=== PATIENT | female | born 1980 | race African-American/Black ===

== ENCOUNTER 2017-01-24 10:50 | Inpatient (IN) | payer OTHER ==
[2017-01-24 13:22] VITALS: BMI 25.7
[2017-01-24] MEDS ORDERED: LOPERAMIDE HCL 2 MG CAPSULE PO PRN (14:52)
[2017-01-24] MEDS ORDERED: MAG HYDROX/AL HYDROX/SIMETH 30 ML UNIT-DOSE CUP PO PRN (14:52)
[2017-01-24] MEDS ORDERED: MAGNESIUM CITRATE 300 ML BOTTLE PO PRN (14:52)
[2017-01-24] MEDS ORDERED: NICOTINE POLACRILEX 2 MG GUM BC PRN (14:52)
[2017-01-24] MEDS ORDERED: guaiFENesin/D-METHORPHAN HB 10 ML UNIT-DOSE CUPS PO PRN (14:52)
[2017-01-24] MEDS ORDERED: MENTHOL/PHENOL 1 EACH UD MM PRN (14:52)
[2017-01-24] MEDS ORDERED: MAGNESIUM HYDROX 2400MG/30ML ORAL SUSPENSION 30 ML CUP PO PRN (14:52)
[2017-01-24] MEDS ORDERED: P-EPHED 60MG/TRIPROLIDI 2.5MG TABLET PO PRN (14:52)
--- NOTE | 2017-01-24 15:09 | HP ---
COWS - Scale Resting Pulse: 0= [place] 80 or Below Sweatin= Chills/Flushing Restless Observation: 1= Difficult to Sit Still Pupil Size: 1= Pupils >than Normal Bone or Joint Aches: 1= Mild Discomfort Runny Nose/ Eye Tearin= Nasal Congestion GI Upset > 30mins: 2= Nausea/Diarrhea Tremor Observation: 1= Tremor [place], Not Seen Yawning Observation: 0= None Anxiety or Irritability: 1=Feels Anxious/Irritable Goose Flesh Skin: 3=Piloerection COWS Score: 12 Admission ROS BHS - HPI Chief Complaint: I need help to stop taking opioids . Allergies/Adverse Reactions: Allergies Allergy/AdvReac Type Severity Reaction Status Date / Time piperacillin sodium Allergy Severe Swelling Verified 01/24/17 14:43 [From Zosyn] sulfamethoxazole Allergy Severe Swelling Verified 01/24/17 14:43 [From Bactrim] tazobactam sodium Allergy Severe Swelling Verified 01/24/17 14:43 [From Zosyn] trimethoprim [From Bactrim] Allergy Severe Swelling Verified 01/24/17 14:43 History of Present Illness: 36 y/o f pt with SCD has opioid dependency Exam Limitations: No Limitations - Ebola screening Have you traveled outside of the country in the last 21 days: No Have you had contact with anyone from an Ebola affected area: No Have you been sick,other than usual withdrawal symptoms: No Do you have a fever: No - Review of Systems Constitutional: Malaise, Changes in sleep EENT: reports: No Symptoms Reported Respiratory: reports: No Symptoms reported Cardiac: reports: No Symptoms Reported GI: reports: Nausea, Abdominal cramping : reports: No Symptoms Reported Musculoskeletal: reports: Joint Pain, Muscle Pain, Muscle Weakness Integumentary: reports: No Symptoms Reported Neuro: reports: Weakness Endocrine: reports: Other (adrenal insufficiency , hypothyroidism ,) Hematology: reports: Other (SCD) Other Systems: Reviewed and Negative Patient History - Patient Medical History Hx Anemia: Yes (sickle cell disease ) Hx Asthma: No Hx Chronic Obstructive Pulmonary Disease (COPD): No Hx Cancer: No Hx Cardiac Disorders: No Hx Congestive Heart Failure: No Hx Hypertension: No Hx Hypercholesterolemia: No Hx Pacemaker: No HX Cerebrovascular Accident: Yes (2012- left sided now much improved ) Hx Seizures: No Hx Dementia: No Hx Diabetes: No Hx Gastrointestinal Disorders: No Hx Liver Disease: No Hx Genitourinary Disorders: No Hx Sexually Transmitted Disorders: No Hx Renal Disease (ESRD): No Hx Thyroid Disease: Yes (hypothyroidism ) Hx Human Immunodeficiency Virus (HIV): No Hx Hepatitis C: No Hx Depression: Yes Hx Suicide Attempt: No Hx Bipolar Disorder: No Hx Schizophrenia: No - Patient Surgical History Past Surgical History: Yes Hx Neurologic Surgery: No Hx Cataract Extraction: No Hx Cardiac Surgery: No Hx Lung Surgery: No Hx Breast Surgery: No Hx Breast Biopsy: No Hx Abdominal Surgery: No Hx Appendectomy: No Hx Cholecystectomy: No Hx Genitourinary Surgery: No Hx Section: No Hx Orthopedic Surgery: No Other Surgical History: tubal ligation in 2005 Anesthesia Reaction: No - PPD History Previous Implant?: Yes Documented Results: Negative w/o proof Implanted On Prior [facility] Admission?: No - Reproductive History Patient is a Female of Child Bearing Age (11 -55 yrs old): Yes Last Menstrual Period: 01/10/17 Patient : No - Smoking Cessation Smoking history: Current every day smoker Have you smoked in the past 12 months: Yes Aproximately how many cigarettes per day: 3 Cigars Per Day: 0 Hx Chewing Tobacco Use: No Initiated information on smoking cessation: Yes 'Breaking Loose' booklet given: 01/24/17 - Substance & Tx. History Hx Alcohol Use: No Hx Substance Use: Yes Substance Use Type: Opiates Hx Substance Use Treatment: Yes - Substances Abused Hydromorphone (prescribed) Route: Oral Frequency: Daily Amount used: 10 tabs. (4 mg tabs.) Age of first use: 32 Date of Last Use: 01/24/17 Family Disease History - Family Disease History Family Disease History: Other: Father (SCD) Admission Physical Exam BHS - Vital Signs Vital Signs: Vital Signs - 24 hr 01/24/17 13:10 Temperature 97 F L Pulse Rate 69 Respiratory 20 Rate Blood Pressure 103/69 36 y/o f pt appearing tired, cooperating with exam - Physical General Appearance: Yes: Irritable, Anxious HEENTM: Yes: Hearing grossly Normal, Normal ENT Inspection, Normal Voice, AAMIR Respiratory: Yes: Chest Non-Tender, Lungs Clear, Normal Breath Sounds, No Respiratory Distress Neck: Yes: Thyroid enlarged Breast: Yes: Breast Exam Deferred Cardiology: Yes: Regular Rhythm, Regular Rate, S1, S2 Abdominal: Yes: Non Tender, Flat, Soft, Increased Bowel Sounds Genitourinary: Yes: Within Normal Limits Back: Yes: Decreased Range of Motion Musculoskeletal: Yes: Back pain, Muscle weakness Extremities: Yes: Within Normal Limits Neurological: Yes: Within Normal Limits, tile mechanic II-XII NML intact, Alert, Motor Strength 5/5, Normal Response Integumentary: Yes: Moist Lymphatic: Yes: Within Normal Limits - Diagnostic (1) Opioid dependence Current Visit: Yes Status: Chronic Qualifiers: Substance use status: uncomplicated Qualified Code(s): F11.20 - Opioid dependence, uncomplicated (2) Adrenal insufficiency Current Visit: Yes Status: Chronic (3) Hypothyroidism Current Visit: Yes Status: Chronic Qualifiers: Hypothyroidism type: unspecified Qualified Code(s): E03.9 - Hypothyroidism, unspecified (4) Nicotine dependence Current Visit: Yes Status: Chronic Qualifiers: Nicotine product type: cigarettes Substance use status: uncomplicated Qualified Code(s): F17.210 - Nicotine dependence, cigarettes, uncomplicated (5) Sickle cell anemia Current Visit: No Status: Inactive Qualifiers: Sickle-cell associated disorders: without crisis Qualified Code(s): D57.1 - Sickle-cell disease without crisis Cleared for Admission [facility] - Detox or Rehab [facility] Level of Care: Medically Managed Detox Regimen/Protocol: Methadone [facility] Breath Alcohol Content Breath Alcohol Content: 0 Urine Pregancy Test - Result Urine Test Results: Negative- NO Line Present Urine Drug Screen - Results Drug Screen Negative: No Urine Drug Screen Results: OPI-Opiates, TCA-Tricyclic Antidepress
[2017-01-24] MEDS ORDERED: METHADONE HCL 10 MG TABLET (FOR DETOX USE ONLY) PO ONE ×2 (15:44→23:00)
[2017-01-24] MEDS: diazePAM 5 MG TABLET PO PRN ×2 (16:52→22:43)
[2017-01-24 18:37] LABS: URINE APPEARANCE CLEAR; URINE BILIRUBIN NEGATIVE (NEGATIVE); URINE BLOOD NEGATIVE (NEGATIVE); URINE COLOR YELLOW; URINE GLUCOSE (UA) NEGATIVE (NEGATIVE); URINE KETONE NEGATIVE (NEGATIVE); URINE LEUK ESTERASE NEGATIVE (NEGATIVE); URINE NITRITE NEGATIVE (NEGATIVE); URINE PROTEIN NEGATIVE (NEGATIVE); URINE UROBILINOGEN NEGATIVE E.U./dl (0.2-1.0)
[2017-01-24] MEDS: THIAMINE HCL 100 MG TABLET (FP) PO SCH (22:43)
[2017-01-24] MEDS: HYDROCORTISONE 20 MG TABLET PO SCH (22:43)
[2017-01-25 09:39] LABS: MCH 27.7 pg (25.7-33.7); MCHC 34.8 g/dl (32.0-36.0); MEAN CELL VOLUME 79.6 fl (80-96); MEAN PLT VOLUME 7.4 fl (7.5-11.1); PLATELET COUNT 214 K/MM3 (134-434); RDW 18.9 % (11.6-15.6); WHITE BLOOD COUNT 5.6 K/mm3 (4.0-10.0)
[2017-01-25] MEDS ORDERED: METHADONE HCL 10 MG TABLET (FOR DETOX USE ONLY) PO ONE (10:00)
[2017-01-25 10:16] LABS: ALBUMIN 3.1 g/dl (3.4-5.0); ALK PHOS 78 U/L (45-117); ANION GAP 10 (8-16); BILIRUBIN,TOTAL 0.4 mg/dL (0.2-1.0); CALCIUM 8.4 mg/dL (8.5-10.1); CO2 24 mmol/L (21-32); CREATININE 0.4 mg/dL (0.55-1.02); GLUCOSE,RANDOM 83 mg/dL (74-106); SGOT/AST 17 U/L (15-37); SGPT/ALT 20 U/L (12-78)
[2017-01-25] MEDS: PRENATAL VITAMINS W/ FOLIC ACID TABLET (FP) PO SCH (11:01)
[2017-01-25] MEDS: NICOTINE 7 MG/24 HOURS TOPICAL PATCH TD SCH (11:02)
[2017-01-25] MEDS: HYDROCORTISONE 20 MG TABLET PO SCH ×2 (11:02→22:34)
[2017-01-25] MEDS: diazePAM 5 MG TABLET PO PRN ×3 (11:03→22:34)
--- NOTE | 2017-01-25 11:30 | PN ---
BHS COWS - Scale Resting Pulse: 1= [place] 81-100 Sweatin= Chills/Flushing Restless Observation: 1= Difficult to Sit Still Pupil Size: 1= Pupils >than Normal Bone or Joint Aches: 2= Severe Diffuse Aches Runny Nose/ Eye Tearin= Nasal Congestion GI Upset > 30mins: 1= Stomach Cramp Tremor Observation of Outstretched Hands: 1= Tremor [place], Not Seen Yawning Observation: 0= None Anxiety or Irritability: 2=Irritable/Anxious Goose Flesh Skin: 0=Smooth Skin COWS Score: 11 S Progress Note (SOAP) Subjective: interrupted sleep, sweats, shakes , Objective: 01/25/17 11:28 Vital Signs Temperature 97.9 F 01/25/17 10:25 Pulse Rate 81 01/25/17 10:25 Respiratory Rate 18 01/25/17 10:25 Blood Pressure 109/67 01/25/17 10:25 O2 Sat by Pulse Oximetry (%) Laboratory Tests 01/24/17 01/25/17 01/25/17 16:30 06:45 06:45 WBC 5.6 RBC 3.84 Hgb 10.6 L Hct 30.6 L MCV 79.6 L MCHC 34.8 RDW 18.9 H Plt Count 214 MPV 7.4 L Sodium 144 Potassium 4.4 Chloride 110 H Carbon Dioxide 24 Anion Gap 10 BUN 6 L Creatinine 0.4 L Creat Clearance w eGFR > 60 Random Glucose 83 Calcium 8.4 L Total Bilirubin 0.4 AST 17 ALT 20 Alkaline Phosphatase 78 Total Protein 7.0 Albumin 3.1 L Urine Color Yellow Urine Appearance Clear Urine pH 5.0 Ur Specific [place] 1.016 Urine Protein Negative Urine Glucose (UA) Negative Urine Ketones Negative Urine Blood Negative Urine Nitrite Negative Urine Bilirubin Negative Urine Urobilinogen Negative Ur Leukocyte Esterase Negative 03/15/17 17:16 pt aox3 in nad ambulating Assessment: 01/25/17 11:29 withdrawal sx's lbp h/o SC anemia h/o adrenal insuff. Plan: cont detox increase fluids flexeril prn
[2017-01-25] MEDS: CYCLOBENZAPRINE HCL 10 MG TABLET (FP) PO PRN ×2 (11:36→22:34)
--- NOTE | 2017-01-25 11:47 | EKG ---
Test Reason : Blood Pressure : / mmHG Vent. Rate : 061 BPM Atrial Rate : 067 BPM P-R Int : 116 ms QRS Dur : 074 ms QT Int : 392 ms P-R-T Axes : 036 022 015 degrees QTc Int : 394 ms NORMAL SINUS RHYTHM NORMAL ECG NO PREVIOUS ECGS AVAILABLE Confirmed by VAUGHN ROTHMAN MD ([id number]) on 01/25/2017 11:47:18 AM Referred By: Confirmed By:VAUGHN ROTHMAN MD
[2017-01-25] MEDS: THIAMINE HCL 100 MG TABLET (FP) PO SCH (22:34)
[2017-01-26] MEDS: IBUPROFEN 400 MG TABLET (FP) PO PRN ×3 (07:42→22:45)
[2017-01-26] MEDS ORDERED: METHADONE HCL 5 MG TABLET (FOR DETOX USE ONLY) PO ONE (10:00)
[2017-01-26] MEDS: HYDROCORTISONE 20 MG TABLET PO SCH ×2 (10:59→22:45)
[2017-01-26] MEDS: PRENATAL VITAMINS W/ FOLIC ACID TABLET (FP) PO SCH (10:59)
[2017-01-26] MEDS: NICOTINE 7 MG/24 HOURS TOPICAL PATCH TD SCH (11:00)
[2017-01-26] MEDS: diazePAM 5 MG TABLET PO PRN ×3 (11:01→20:00)
[2017-01-26] MEDS: ACETAMINOPHEN 325 MG TABLET (FP) PO PRN ×2 (11:02→20:07)
--- NOTE | 2017-01-26 13:49 | PN ---
S COWS - Scale Resting Pulse: 1= [place] 81-100 Sweatin= Chills/Flushing Restless Observation: 1= Difficult to Sit Still Pupil Size: 0= Normal to Room Light Bone or Joint Aches: 2= Severe Diffuse Aches Runny Nose/ Eye Tearin= None GI Upset > 30mins: 1= Stomach Cramp Tremor Observation of Outstretched Hands: 2= Slight Tremor Visible Yawning Observation: 1= 1-2x During Session Anxiety or Irritability: 2=Irritable/Anxious Goose Flesh Skin: 3=Piloerection COWS Score: 14 S Progress Note (SOAP) Subjective: Interrupted sleep, Back Ache, Tremors, Sweating. Objective: PT. A & O X 3, OBSERVED AMBULATING ON UNIT. 01/26/17 13:47 Vital Signs Temperature 98.6 F 01/26/17 11:31 Pulse Rate 83 01/26/17 11:31 Respiratory Rate 16 01/26/17 11:31 Blood Pressure 99/56 01/26/17 11:31 O2 Sat by Pulse Oximetry (%) Laboratory Last Values WBC 5.6 K/mm3 (4.0-10.0) 01/25/17 06:45 RBC 3.84 M/mm3 (3.60-5.2) 01/25/17 06:45 Hgb 10.6 GM/dL (10.7-15.3) L 01/25/17 06:45 Hct 30.6 % (32.4-45.2) L 01/25/17 06:45 MCV 79.6 fl (80-96) L 01/25/17 06:45 MCHC 34.8 g/dl (32.0-36.0) 01/25/17 06:45 RDW 18.9 % (11.6-15.6) H 01/25/17 06:45 Plt Count 214 K/MM3 (134-434) 01/25/17 06:45 MPV 7.4 fl (7.5-11.1) L 01/25/17 06:45 Sodium 144 mmol/L (136-145) 01/25/17 06:45 Potassium 4.4 mmol/L (3.5-5.1) 01/25/17 06:45 Chloride 110 mmol/L (98-107) H 01/25/17 06:45 Carbon Dioxide 24 mmol/L (21-32) 01/25/17 06:45 Anion Gap 10 (8-16) 01/25/17 06:45 BUN 6 mg/dL (7-18) L 01/25/17 06:45 Creatinine 0.4 mg/dL (0.55-1.02) L 01/25/17 06:45 Creat Clearance w eGFR > 60 (>60) 01/25/17 06:45 Random Glucose 83 mg/dL (74-106) 01/25/17 06:45 Calcium 8.4 mg/dL (8.5-10.1) L 01/25/17 06:45 Total Bilirubin 0.4 mg/dL (0.2-1.0) 01/25/17 06:45 AST 17 U/L (15-37) 01/25/17 06:45 ALT 20 U/L (12-78) 01/25/17 06:45 Alkaline Phosphatase 78 U/L (45-117) 01/25/17 06:45 Total Protein 7.0 g/dl (6.4-8.2) 01/25/17 06:45 Albumin 3.1 g/dl (3.4-5.0) L 01/25/17 06:45 Urine Color Yellow 01/24/17 16:30 Urine Appearance Clear 01/24/17 16:30 Urine pH 5.0 (5.0-8.0) 01/24/17 16:30 Ur Specific [place] 1.016 (1.001-1.035) 01/24/17 16:30 Urine Protein Negative (NEGATIVE) 01/24/17 16:30 Urine Glucose (UA) Negative (NEGATIVE) 01/24/17 16:30 Urine Ketones Negative (NEGATIVE) 01/24/17 16:30 Urine Blood Negative (NEGATIVE) 01/24/17 16:30 Urine Nitrite Negative (NEGATIVE) 01/24/17 16:30 Urine Bilirubin Negative (NEGATIVE) 01/24/17 16:30 Urine Urobilinogen Negative E.U./dl (0.2-1.0) 01/24/17 16:30 Ur Leukocyte Esterase Negative (NEGATIVE) 01/24/17 16:30 RPR Titer Nonreactive (NONREACTIVE) 01/25/17 06:45 LABS NOTED. Assessment: 01/26/17 13:48 WITHDRAWAL SYMPTOMS. Plan: CONTINUE DETOX. ADVISED PATIENT TO FOLLOW-UP WITH DIRECTOR OF PUBLIC RELATIONS / REHAB MEDICAL PROVIDER AFTER DISCHARGE FROM DETOX FOR GENERAL MEDICAL ASSESSMENT AND FOR ABNORMAL ADMISSION LAB VALUES.
[2017-01-26] MEDS: LIDOCAINE VISCOUS 2% ORAL/TOP 20 ML UNIT-DOSE CUP MM SCH (22:43)
[2017-01-26] MEDS: diphenhydrAMINE HCL 50 MG CAPSULE PO PRN (22:45)
[2017-01-26] MEDS: THIAMINE HCL 100 MG TABLET (FP) PO SCH (22:45)
[2017-01-26] MEDS: CYCLOBENZAPRINE HCL 10 MG TABLET (FP) PO PRN (22:45)
[2017-01-27] MEDS: diazePAM 5 MG TABLET PO PRN ×3 (01:21→12:45)
[2017-01-27] MEDS: diphenhydrAMINE HCL 50 MG CAPSULE PO PRN ×2 (01:21→22:36)
[2017-01-27] MEDS: LIDOCAINE VISCOUS 2% ORAL/TOP 20 ML UNIT-DOSE CUP MM SCH ×3 (06:06→23:13)
[2017-01-27] MEDS ORDERED: METHADONE HCL 5 MG TABLET (FOR DETOX USE ONLY) PO ONE (10:00)
[2017-01-27] MEDS: PRENATAL VITAMINS W/ FOLIC ACID TABLET (FP) PO SCH (11:03)
[2017-01-27] MEDS: CYCLOBENZAPRINE HCL 10 MG TABLET (FP) PO PRN ×2 (11:03→22:36)
[2017-01-27] MEDS: NICOTINE 7 MG/24 HOURS TOPICAL PATCH TD SCH (11:03)
[2017-01-27] MEDS: HYDROCORTISONE 20 MG TABLET PO SCH ×2 (11:03→22:36)
[2017-01-27] MEDS: LIDOCAINE 5% TOPICAL PATCH TP SCH (14:35)
--- NOTE | 2017-01-27 15:32 | PN ---
BHS Progress Note (SOAP) Subjective: ALERT,IRRITABLE,ANXIOUS,INTERRUPTED SLEEP,PAIN IN THE BODY AND BACK Objective: 01/27/17 15:30 Vital Signs Temperature 97.2 F L 01/27/17 10:33 Pulse Rate 80 01/27/17 10:33 Respiratory Rate 20 01/27/17 10:33 Blood Pressure 106/64 01/27/17 10:33 O2 Sat by Pulse Oximetry (%) Assessment: 01/27/17 15:31 WITHDRAWAL SYMPTOM Plan: CONTINUE DETOX,LIDODERM PATCH
[2017-01-27] MEDS: IBUPROFEN 400 MG TABLET (FP) PO PRN (19:33)
[2017-01-27] MEDS: hydrOXYzine PAMOATE 25 MG CAPSULE (FP) PO PRN (19:34)
[2017-01-27] MEDS: THIAMINE HCL 100 MG TABLET (FP) PO SCH (22:36)
[2017-01-28] MEDS: LIDOCAINE VISCOUS 2% ORAL/TOP 20 ML UNIT-DOSE CUP MM SCH ×3 (06:15→23:47)
[2017-01-28] MEDS ORDERED: METHADONE HCL 10 MG TABLET (FOR DETOX USE ONLY) PO ONE (10:00)
[2017-01-28] MEDS: PRENATAL VITAMINS W/ FOLIC ACID TABLET (FP) PO SCH (10:59)
[2017-01-28] MEDS: HYDROCORTISONE 20 MG TABLET PO SCH ×2 (10:59→23:07)
[2017-01-28] MEDS: hydrOXYzine PAMOATE 25 MG CAPSULE (FP) PO PRN ×3 (11:00→23:08)
[2017-01-28] MEDS: LIDOCAINE 5% TOPICAL PATCH TP SCH (11:00)
[2017-01-28] MEDS: CYCLOBENZAPRINE HCL 10 MG TABLET (FP) PO PRN ×2 (11:00→23:09)
[2017-01-28] MEDS: NICOTINE 7 MG/24 HOURS TOPICAL PATCH TD SCH (11:01)
--- NOTE | 2017-01-28 14:48 | PN ---
BHS Progress Note (SOAP) Subjective: ALERT,IRRITABLE,ANXIOUS,INTERRUPTED SLEEP,PAIN IN THE BODY Objective: 01/28/17 14:48 Vital Signs Temperature 97.2 F L 01/28/17 14:21 Pulse Rate 76 01/28/17 14:21 Respiratory Rate 16 01/28/17 14:21 Blood Pressure 121/77 01/28/17 14:21 O2 Sat by Pulse Oximetry (%) Assessment: 01/28/17 14:48 WITHDRAWAL SYMPTOM Plan: CONTINUE DETOX
[2017-01-28] MEDS: THIAMINE HCL 100 MG TABLET (FP) PO SCH (23:08)
[2017-01-28 23:42] VITALS: BP 120/73; PULSE 77; TEMP 97.7
[2017-01-29] MEDS: CYCLOBENZAPRINE HCL 10 MG TABLET (FP) PO PRN (04:32)
[2017-01-29] MEDS: IBUPROFEN 400 MG TABLET (FP) PO PRN (04:32)
--- NOTE | 2017-01-29 04:59 | PN ---
S Progress Note Note: Pt. c/o extreme pain (10/10) to lower extremities. Flexeril and Ibuprofen administered by nursing staff at 4:32am with little relief achieved. She reports shes having a sickle cell crisis. Pt. to be transferred to [facility] ER for further evaluation. RESEARCH PHARMACIST s/w Dr. Wray at [facility].
[2017-01-29] MEDS ORDERED: METHADONE HCL 5 MG TABLET (FOR DETOX USE ONLY) PO ONE ×2 (06:00→11:00)
[2017-01-29] MEDS: LIDOCAINE VISCOUS 2% ORAL/TOP 20 ML UNIT-DOSE CUP MM SCH (08:23)
[2017-01-29] MEDS: PRENATAL VITAMINS W/ FOLIC ACID TABLET (FP) PO SCH (10:43)
[2017-01-29] MEDS: HYDROCORTISONE 20 MG TABLET PO SCH (10:44)
[2017-01-29] MEDS: NICOTINE 7 MG/24 HOURS TOPICAL PATCH TD SCH (10:44)
[2017-01-29] MEDS: LIDOCAINE 5% TOPICAL PATCH TP SCH (10:45)
[2017-01-29] MEDS: hydrOXYzine PAMOATE 25 MG CAPSULE (FP) PO PRN (10:48)
--- NOTE | 2017-03-15 17:18 | DS ---
[facility] Detox Discharge Summary Admission Date: 01/24/17 Discharge Date: 01/29/17 - History Present History: Opioid Dependence - Physical Exam Results Vital Signs: Vital Signs Temperature 97.7 F 01/28/17 23:41 Pulse Rate 77 01/28/17 23:41 Respiratory Rate 18 01/29/17 00:30 Blood Pressure 120/73 01/28/17 23:41 O2 Sat by Pulse Oximetry (%) - Treatment Hospital Course: Detox Protocol Followed, Detoxed Safely, Responded well - Medication Discharge Medications: Ambulatory Orders Folic Acid - 1 mg PO DAILY 01/24/17 Hydrocortisone [Cortef -] 20 mg PO BID 01/24/17 - Diagnosis (1) Opioid dependence Status: Chronic Qualifiers: Substance use status: uncomplicated Qualified Code(s): F11.20 - Opioid dependence, uncomplicated (2) Adrenal insufficiency Status: Chronic (3) Hypothyroidism Status: Chronic Qualifiers: Hypothyroidism type: unspecified Qualified Code(s): E03.9 - Hypothyroidism, unspecified (4) Nicotine dependence Status: Chronic Qualifiers: Nicotine product type: cigarettes Substance use status: uncomplicated Qualified Code(s): F17.210 - Nicotine dependence, cigarettes, uncomplicated (5) Sickle cell crisis Status: Acute - AMA Did Patient Leave Against Medical Advice: No (pt transferred to ED because of bone pain scd)
== END 2017-01-29 11:00 | disposition home or self-care (01) | DRG 773 ==
LOC: YASAS 10:50 → Y6N 15:32
PROVIDERS: ADMIT Internal Medicine Addiction Medicine; ATTEND Internal Medicine Addiction Medicine
PROC: HZ2ZZZZ Detoxification Services for Substance Abuse Treatment (ICD-10-PCS; principal; 2017-01-24)
DX: F11.23 Opioid dependence with withdrawal (principal); F17.210 Nicotine dependence, cigarettes, uncomplicated; D57.1 Sickle-cell disease without crisis; M54.5 Low back pain; E03.9 Hypothyroidism, unspecified; E27.40 Unspecified adrenocortical insufficiency; Z86.73 Personal history of transient ischemic attack (TIA), and cerebral infarction without residual deficits
CPT/HCPCS: 36415; 80053; 81003; 85027; 86593; 93005; 93010

== ENCOUNTER 2017-01-29 05:27 | Emergency (ER) | payer OTHER ==
[2017-01-29 05:40] VITALS: BMI 25.7
[2017-01-29] MEDS ORDERED: ACETAMINOPHEN 1000 MG/100 ML VIAL (NON FORMULARY) IVPB ONE (06:21)
[2017-01-29] MEDS ORDERED: KETOROLAC TROMETHAMINE 30 MG/1 ML VIAL ONE ×2 (06:21→06:51)
[2017-01-29] MEDS ORDERED: ACETAMINOPHEN INJECTION 100 ML IVPB ONE (06:22)
[2017-01-29] MEDS ORDERED: SODIUM CHLORIDE 0.9% 500 ML INFUS.BAG IV ONE (06:22)
[2017-01-29 06:30] LABS: BASOPHIL 0.5 % (0-2.0); EOSINOPHIL 0.6 % (0-4.5); MCH 27.5 pg (25.7-33.7); MCHC 34.2 g/dl (32.0-36.0); MEAN CELL VOLUME 80.3 fl (80-96); MEAN PLT VOLUME 7.5 fl (7.5-11.1); NEUTROPHILS 56.3 % (42.8-82.8); PLATELET COUNT 207 K/MM3 (134-434); RDW 19.5 % (11.6-15.6); WHITE BLOOD COUNT 7.9 K/mm3 (4.0-10.0)
--- NOTE | 2017-01-29 06:37 | PDOC ---
[id number] No Limitations - History of Present Illness Initial Comments: 01/29/17 06:37 Patient is a 36 year old female with a significant past medical history of sickle cell disease, adrenal insufficiency, stroke (with left side residual weakness) and opioid dependence who presents to the ED from [facility] sent for sickle cell crisis. Patient reports bilateral lower extremity pain. Patient states that she is having a sickle cell crisis. <Audrey Fontanez - Last Filed: 01/29/17 06:42> <Janneth Hernandez - Last Filed: 02/04/17 00:43> - General Chief Complaint: Pain, Acute Stated Complaint: PAIN Past History <Audrey Fontanez - Last Filed: 01/29/17 06:42> - Past Medical History Anemia: Yes (sickle cell disease ) Asthma: No Cancer: No Cardiac Disorders: No CVA: Yes (2012- left sided now much improved ) COPD: No CHF: No Dementia: No Diabetes: No GI Disorders: No Disorders: No HTN: No Hypercholesterolemia: No Kidney Stones: No Liver Disease: No Suicide Attempt (Hx): No Seizures: No Thyroid Disease: Yes (hypothyroidism ) - Surgical History Abdominal Surgery: No Appendectomy: No Cardiac Surgery: No Cholecystectomy: No Lung Surgery: No Neurologic Surgery: No Orthopedic Surgery: No - Reproductive History PID: No - Psycho/Social/Smoking Cessation Hx Anxiety: No Suicidal Ideation: No Smoking History: Current every day smoker Have you smoked in the past 12 months: Yes Number of Cigarettes Smoked Daily: 3 Cigars Per Day: 0 Information on smoking cessation initiated: Yes 'Breaking Loose' booklet given: 01/24/17 Hx Alcohol Use: No Drug/Substance Use Hx: Yes Substance Use Type: Opiates Hx Substance Use Treatment: Yes <Janneth Hernandez - Last Filed: 02/04/17 00:43> - Past Medical History Allergies/Adverse Reactions: Allergies Allergy/AdvReac Type Severity Reaction Status Date / Time piperacillin sodium Allergy Severe Swelling Verified 01/29/17 05:38 [From Zosyn] sulfamethoxazole Allergy Severe Swelling Verified 01/29/17 05:38 [From Bactrim] tazobactam sodium Allergy Severe Swelling Verified 01/29/17 05:38 [From Zosyn] trimethoprim [From Bactrim] Allergy Severe Swelling Verified 01/29/17 05:38 Home Medications: Ambulatory Orders Folic Acid - 1 mg PO DAILY 01/24/17 Hydrocortisone [Cortef -] 20 mg PO BID 01/24/17 Review of Systems - Review of Systems Able to Perform ROS?: Yes Comments:: 01/29/17 06:37 GENERAL/CONSTITUTIONAL: No fever or chills. No weakness. HEAD, EYES, EARS, NOSE AND THROAT: No change in vision. No ear pain or discharge. No sore throat. CARDIOVASCULAR: No chest pain or shortness of breath. RESPIRATORY: No cough, wheezing, or hemoptysis. GASTROINTESTINAL: No nausea, vomiting, diarrhea or constipation. GENITOURINARY: No dysuria, frequency, or change in urination. MUSCULOSKELETAL: +bilateral lower extremity pain. No joint or muscle swelling. No neck or back pain. SKIN: No rash NEUROLOGIC: No headache, vertigo, loss of consciousness, or change in strength/ sensation. ENDOCRINE: No increased thirst. No abnormal weight change. HEMATOLOGIC/LYMPHATIC: No anemia, easy bleeding, or history of blood clots. ALLERGIC/IMMUNOLOGIC: No hives or skin allergy. <Audrey Fontanez - Last Filed: 01/29/17 06:42> *Physical Exam - Vital Signs Last Vital Signs Temp Pulse Resp BP Pulse Ox 96.1 F L 82 17 134/79 100 01/29/17 05:34 01/29/17 05:38 01/29/17 05:34 01/29/17 05:34 01/29/17 05:38 - Physical Exam Comments: 01/29/17 06:38 GENERAL: Awake, alert, and fully oriented, +in moderate distress HEAD: No signs of trauma EYES: PERRLA, EOMI, sclera anicteric, conjunctiva clear ENT: Auricles normal inspection, hearing grossly normal, nares patent, oropharynx clear without exudates. Moist mucosa NECK: Normal ROM, supple, no lymphadenopathy, JVD, or masses LUNGS: Breath sounds equal, clear to auscultation bilaterally. No wheezes, and no crackles HEART: Regular rate and rhythm, normal S1 and S2, no murmurs, rubs or gallops ABDOMEN: Soft, nontender, normoactive bowel sounds. No guarding, no rebound. No masses EXTREMITIES: Normal range of motion, no edema. No clubbing or cyanosis. No cords, erythema, or tenderness NEUROLOGICAL: Cranial nerves II through XII grossly intact. Normal speech. SKIN: Warm, Dry, normal turgor, no rashes or lesions noted. <Audrey Fontanez - Last Filed: 01/29/17 06:42> - Vital Signs Last Vital Signs Temp Pulse Resp BP Pulse Ox 96.1 F L 71 17 134/79 99 01/29/17 05:34 01/29/17 05:34 01/29/17 05:34 01/29/17 05:34 01/29/17 05:34 <Janneth Hernandez - Last Filed: 02/04/17 00:43> ED Treatment Course - LABORATORY CBC & Chemistry Diagram: 01/29/17 06:14 01/29/17 06:14 - ADDITIONAL ORDERS Additional order review: 01/29/17 06:14 RBC 3.80 MCV 80.3 MCHC 34.2 RDW 19.5 H MPV 7.5 Neutrophils % 56.3 Lymphocytes % 37.5 Monocytes % 5.1 Eosinophils % 0.6 Basophils % 0.5 - Medications Given in the ED: ED Medications Discontinued Medications Generic Name Dose Route Start Last Admin Trade Name Jules PRN Reason Stop Dose Admin Acetaminophen 1,000 mg 01/29/17 06:21 01/29/17 06:29 Ofirmev Injection - IVPB 01/29/17 06:22 1,000 mg ONCE ONE Administration Sodium Chloride 1,000 ml 01/29/17 06:22 01/29/17 06:29 Normal Saline - IV 01/29/17 06:23 1,000 ml ONCE ONE Administration <Audrey Fontanez - Last Filed: 01/29/17 06:42> - LABORATORY CBC & Chemistry Diagram: 01/29/17 06:14 01/29/17 06:14 <Janneth Hernandez - Last Filed: 02/04/17 00:43> Medical Decision Making - Medical Decision Making 01/29/17 06:49 Pt comes from [facility] detox where she is being treated for opioid abuse. Now with sickle cell crisis. Pain in her knees. We are treating with ofirmev and NSS. SHe will not be given opiates today. After she is treated she will return to [facility]. Retic count is 4.0 01/29/17 06:51 She will be signed out to the day ER doctor. <Janneth Hernandez - Last Filed: 02/04/17 00:43> *DC/Admit/Observation/Transfer - Attestations Scribe Attestion: 01/29/17 06:38 Documentation prepared by MARCIE Hernandes, acting as medical office specialist for Janneth Hernandez MD. <Audrey Fontanez - Last Filed: 01/29/17 06:42> <Janneth Hernandez - Last Filed: 02/04/17 00:43> Diagnosis at time of Disposition: Sickle cell crisis, Opioid dependence - Discharge Dispostion Disposition: I.P. ALCOHOL/SUBS ABUSE REHAB - Referrals Referrals: STAFF,NOT ON [Primary Care Provider] - - Patient Instructions Printed Discharge Instructions: DI for Sickle Cell Anemia, Pain Crisis -- Adult Additional Instructions: Activity as tolerated. Stay hydrated. Tylenol 1000 mg every 8 hours and/or ibuprofen 600 mg every 8 hours as needed for moderate pain. Blood tests performed today showed no acute abnormalities. Return to [facility] to complete your detox. Continue your medications as previously prescribed by your physician. As discussed, you will need to finalize a new pain regimen with your primary doctor in [place]. You should follow up with your primary doctor as soon as possible regarding today's emergency department visit. Return to the emergency department for any new or concerning symptoms, particularly fevers, intolerable pain, severe swelling.
[2017-01-29 06:50] LABS: ALBUMIN 3.3 g/dl (3.4-5.0); ALK PHOS 89 U/L (45-117); ANION GAP 7 (8-16); BILIRUBIN,TOTAL 0.4 mg/dL (0.2-1.0); CO2 27 mmol/L (21-32); COCKROFT - GAULT 143.8625; CREATININE 0.6 mg/dL (0.55-1.02); GLUCOSE,RANDOM 99 mg/dL (74-106); SGOT/AST 24 U/L (15-37); SGPT/ALT 48 U/L (12-78); TOT PROT 7.2 g/dl (6.4-8.2)
[2017-01-29] MEDS ORDERED: KETOROLAC TROMETHAMINE 30 MG/1 ML VIAL IVPUSH ONE (06:50)
[2017-01-29] MEDS ORDERED: HYDROmorphone HCL CARPU-JECT 2 MG/1 ML DISP.SYRIN IM ONE (07:22)
[2017-01-29] MEDS ORDERED: HYDROmorphone HCL CARPU-JECT 2 MG/1 ML DISP.SYRIN IVPUSH ONE (07:22)
[2017-01-29] MEDS ORDERED: HYDROmorphone HCL CARPU-JECT 2 MG/1 ML DISP.SYRIN ONE (07:23)
--- NOTE | 2017-01-29 07:26 | PDOC ---
*Physical Exam - Vital Signs Last Vital Signs Temp Pulse Resp BP Pulse Ox 96.1 F L 82 17 134/79 100 01/29/17 05:34 01/29/17 05:38 01/29/17 05:34 01/29/17 05:34 01/29/17 05:38 - Physical Exam Comments: 01/29/17 07:23 Afebrile. Vital signs normal. Tearful, complaining of leg pain, neurologically intact without evidence of infection or DVT ED Treatment Course - LABORATORY CBC & Chemistry Diagram: 01/29/17 06:14 01/29/17 06:14 - ADDITIONAL ORDERS Additional order review: Laboratory Results 01/29/17 01/29/17 06:14 06:14 Sodium 141 Potassium 4.3 Chloride 107 Carbon Dioxide 27 Anion Gap 7 L BUN 9 D Creatinine 0.6 D Creat Clearance w eGFR > 60 Random Glucose 99 Calcium 9.0 Total Bilirubin 0.4 AST 24 D ALT 48 D Alkaline Phosphatase 89 Total Protein 7.2 Albumin 3.3 L Serum , Qual Negative 01/29/17 06:14 RBC 3.80 MCV 80.3 MCHC 34.2 RDW 19.5 H MPV 7.5 Neutrophils % 56.3 Lymphocytes % 37.5 Monocytes % 5.1 Eosinophils % 0.6 Basophils % 0.5 - Medications Given in the ED: ED Medications Discontinued Medications Generic Name Dose Route Start Last Admin Trade Name Jules PRN Reason Stop Dose Admin Acetaminophen 1,000 mg 01/29/17 06:21 01/29/17 06:29 Ofirmev Injection - IVPB 01/29/17 06:22 1,000 mg ONCE ONE Administration Ketorolac Tromethamine 30 mg 01/29/17 06:50 01/29/17 06:53 Toradol Injection - IVPUSH 01/29/17 06:51 30 mg ONCE ONE Administration Sodium Chloride 1,000 ml 01/29/17 06:22 01/29/17 06:29 Normal Saline - IV 01/29/17 06:23 1,000 ml ONCE ONE Administration Medical Decision Making - Medical Decision Making 01/29/17 07:23 Received signout on this 36-year-old female with history of sickle cell-year- old with complications in the past, sent from [facility] where she is detoxing from opiates for bilateral knee pain that began over the last 2 days, typical of her usual sickle cell crisis but without obvious trigger of infection or trauma. She has no other complaints, she normally was taking hydromorphone in the past but has been detoxing over the last 5-6 days. Patient was given Tylenol and Toradol intravenously with only mild relief, her labs are at baseline with a reticular count of 4, question baseline. Attempt was made to withhold opiates given the ongoing detox. Given the pain spike, will give a single dose and then patient will need to return to [facility] to determine her ongoing pain regimen. 01/29/17 08:17 Feels better after dilaudid dose. Plan is to complete detox and then arrange for new pain regimen with her primary doctor in [place]. Will arrange for ambulette back to [facility], understands return criteria. *DC/Admit/Observation/Transfer Diagnosis at time of Disposition: Sickle cell crisis Opioid dependence Qualifiers: Substance use status: uncomplicated Qualified Code(s): F11.20 - Opioid dependence, uncomplicated - Discharge Dispostion Disposition: I.P. ALCOHOL/SUBS ABUSE REHAB - Patient Instructions Printed Discharge Instructions: DI for Sickle Cell Anemia, Pain Crisis -- Adult Additional Instructions: Activity as tolerated. Stay hydrated. Tylenol 1000 mg every 8 hours and/or ibuprofen 600 mg every 8 hours as needed for moderate pain. Blood tests performed today showed no acute abnormalities. Return to [facility] to complete your detox. Continue your medications as previously prescribed by your physician. As discussed, you will need to finalize a new pain regimen with your primary doctor in [place]. You should follow up with your primary doctor as soon as possible regarding today's emergency department visit. Return to the emergency department for any new or concerning symptoms, particularly fevers, intolerable pain, severe swelling. - Post Discharge Activity
[2017-01-29 07:57] VITALS: TEMP 98.2
[2017-01-29] MEDS ORDERED: HYDROmorphone HCL 2 MG TABLET PO ONE (08:19)
[2017-01-29] MEDS ORDERED: HYDROmorphone HCL 2 MG TABLET ONE (09:32)
[2017-01-29 09:50] VITALS: BP 120/68; PULSE 60
== END 2017-01-29 09:45 | disposition other institution (70) ==
LOC: JER 05:27
PROC: 3E033NZ Introduction of Analgesics, Hypnotics, Sedatives into Peripheral Vein, Percutaneous Approach (ICD-10-PCS; principal; 2017-01-29)
PROC: 3E0333Z Introduction of Anti-inflammatory into Peripheral Vein, Percutaneous Approach (ICD-10-PCS; 2017-01-29)
DX: F11.20 Opioid dependence, uncomplicated (principal); E03.9 Hypothyroidism, unspecified; I69.854 Hemiplegia and hemiparesis following other cerebrovascular disease affecting left non-dominant side; F17.210 Nicotine dependence, cigarettes, uncomplicated
CPT/HCPCS: 36415; 80053; 84703; 85025; 85044; 99284-25